=== PATIENT | female | born 1995 | race Caucasian/White ===

== ENCOUNTER → 2022-04-26 | Outpatient (CLI) | payer OTHER | LOC: DIA.ED 08:05 | DX: O24.419 Gestational diabetes mellitus in pregnancy, unspecified control (principal) | CPT/HCPCS: G0108 ==

== ENCOUNTER 2022-06-29 06:21 | Inpatient (IN) | payer OTHER ==
[2022-06-29] VITALS (17 sets, daily range): BP systolic 25–142; BP diastolic 64–98; PULSE 51–78; TEMP 97.5–98.1
[~2022-06-29] VITALS: Ht 172.7 cm; Wt 87.3 kg
[2022-06-29 07:43] LABS: BASO % 0.3 % (0.0-2.0); EOS # 0.1 K/mm3 (0.0-0.7); EOS % 1.8 % (0.0-4.0); GRAN # 4.6 K/mm3 (1.4-6.5); GRAN % 68.8 % (42.2-75.2); HEMATOCRIT 38.4 % (37.0-47.0); HEMOGLOBIN 12.9 g/dl (12.5-16.0); LYMPH # 1.2 K/mm3 (1.2-3.4); MEAN CELL VOLUME 92 fl (80.0-100.0); MEAN CORPUSCULAR HEMOGLOBIN 31 pg (27-31); MEAN CORPUSCULAR HGB CONC 34 g/dl (33.0-37.0); MEAN PLATELET VOLUME 11.4 fl (7.4-10.4); MONO # 0.7 K/mm3 (0.1-0.6); MONO % 10.6 % (1.7-9.3); PLATELET COUNT 134 K/mm3 (130-400); RED BLOOD COUNT 4.19 M/mm3 (4.10-5.30); REDCELL DISTRIBUTION WIDTH-CV 13.2 % (11.5-14.5)
[2022-06-29 08:23] LABS: ALBUMIN 3.2 gm/dL (3.5-5.0); BILIRUBIN,TOTAL 0.6 mg/dL (0.2-1.2); CALCIUM 9.3 mg/dL (8.4-10.2); CREATININE, serum 0.77 mg/dL (0.57-1.11); POTASSIUM 4.1 mmol/L (3.5-4.5)
[2022-06-29] MEDS ORDERED: QUALITY CHOICE1 TA7 (08:26)
[2022-06-29] MEDS ORDERED: ZOLOFT 50MG50 MG (08:26)
[2022-06-29] MEDS ORDERED: ASPIRIN 81M81 MG/TA2 (08:29)
[2022-06-30 02:00] VITALS: BP 126/71; PULSE 71; TEMP 98.2
[2022-06-30 07:47] LABS: HEMOGLOBIN 9.8 g/dl (12.5-16.0)
[2022-06-30] MEDS ORDERED: PERCOCET 325 MG1 TA2 PO (08:36)
[2022-06-30] MEDS ORDERED: IBU600 MG PO (08:36)
[2022-06-30 08:46] VITALS: BP 114/68; PULSE 75; TEMP 97.9
[2022-06-30 17:04] VITALS: BP 104/73; PULSE 91; TEMP 98
--- NOTE | 2022-06-30 17:59 | NUR ---
PT SHOWERED AND DRESSING WAS REMOVED. DRESSING WAS DRY AND NO DRAINAGE PRESENT.
[2022-06-30 20:00] VITALS: BP 93/70; PULSE 92; TEMP 98.9
--- NOTE | 2022-07-01 04:24 | NUR ---
PT UP WALKING IN THE HALLS. SHE STATES SHE IS FEELING BETTER NOW. DENIES ANY DIZZINES AT THIS TIME. SHE FEELS GAS PAINS, FLATUS IS POSITIVE, AND PAIN IN UPPER SHOULDERS.. ENCOURAGED HER TO KEEP AMB AND MOVING. SHE VERBALIZED UNDERSTANDING AND IS WALKING WELL IN THE KIM.
[2022-07-01 08:02] VITALS: BP 113/55; PULSE 91; TEMP 98.4
[2022-07-01 16:30] VITALS: BP 126/73; PULSE 99
[2022-07-01 19:58] VITALS: BP 117/69; PULSE 70; TEMP 98.8
[2022-07-02 07:44] VITALS: BP 118/75; PULSE 84; TEMP 97.9
[2022-07-02] MEDS ORDERED: FERRO-TIME325 MG PO (08:34)
[2022-07-02] MEDS ORDERED: NORCO 325 MG-51 TAB PO (08:34)
== END 2022-07-02 12:30 | disposition home or self-care (01) | DRG 788 ==
LOC: LDR 06:21 → OB 06:21 → LDR 17:16 → OB 07-02 12:30
PROVIDERS: ADMIT Obstetrics & Gynecology
PROC: 10D00Z1 Extraction of Products of Conception, Low, Open Approach (ICD-10-PCS; principal; 2022-06-29)
DX: O24.420 Gestational diabetes mellitus in childbirth, diet controlled (principal); Q24.9 Congenital malformation of heart, unspecified; O99.344 Other mental disorders complicating childbirth; F32.A Depression, unspecified; O90.81 Anemia of the puerperium; D64.9 Anemia, unspecified; Z3A.39 39 weeks gestation of pregnancy; Z37.0 Single live birth
CPT/HCPCS: J0690; J1100; J1885; J2405; J2590; J7120